=== PATIENT | female | born 1985 | race Caucasian/White ===

== ENCOUNTER 2019-08-12 15:11 | Emergency (ER) | payer MEDICARE, MEDICAID ==
[~2019-08-12] VITALS: Ht 170.2 cm; Wt 65.0 kg
[2019-08-12] MEDS ORDERED: MORPHINE SULFATE 4 MG/ML, 1ML ONE (15:56)
[2019-08-12] MEDS ORDERED: ONDANSETRON 2MG/ML, 2ML ONE (15:56)
[2019-08-12] MEDS ORDERED: ONDANSETRON 2MG/ML, 2ML IVPush ONE (16:00)
[2019-08-12] MEDS ORDERED: MORPHINE SULFATE 4 MG/ML, 1ML IVPush PRN (16:00)
[2019-08-12 16:01] LABS: BASOPHILS # (AUTO) 0.02 x10^3/uL (0-0.1); BASOPHILS % (AUTO) 0 % (0-1); EOSINOPHILS # (AUTO) 0.03 x10^3/uL (0-0.4); EOSINOPHILS % (AUTO) 0 % (1-7); LYMPHOCYTES # (AUTO) 1.58 x10^3/uL (1-3.4); LYMPHOCYTES % (AUTO) 16 % (22-44); MD NO; MEAN CORPUSCULAR HEMOGLOBIN 31.6 pg (27.0-34.8); MEAN CORPUSCULAR VOLUME 95.6 fL (80-100); MEAN PLATELET VOLUME 7.8 fL (7.4-10.4); MONOCYTES # (AUTO) 0.44 x10^3/uL (0.2-0.8); MONOCYTES % (AUTO) 5 % (2-9); NEUTROPHILS # (AUTO) 7.56 x10^3/uL (1.8-6.8); NEUTROPHILS % (AUTO) 79 % (42-75); PLATELET COUNT 229 x10^3/uL (130-400); RED BLOOD COUNT 4.66 x10^6/uL (3.82-5.3); RED CELL DISTRIBUTION WIDTH 13.1 % (9.6-15.2)
[2019-08-12 16:13] LABS: ALANINE AMINOTRANSFERASE 197 U/L (12-78); ANION GAP 5 mmol/L (5-15); CALCIUM 9.1 mg/dL (8.5-10.1); CHLORIDE 110 mmol/L (98-107); CREATININE 0.85 mg/dL (0.55-1.02)
[2019-08-12 16:15] LABS: ALKALINE PHOSPHATASE 82 U/L (45-117); BILIRUBIN,TOTAL 0.6 mg/dL (0.2-1.0); TOTAL PROTEIN 7.8 g/dL (6.4-8.2)
--- NOTE | 2019-08-12 16:59 | NUR ---
ATTEMPT TO TRANSVAG US UNSUCCESSFUL. ERMD IN TO ASSESS PT AND DISCUSS POC. POSITIONING FOR MINI CATH UNSUCCESSFUL. WILL ATTEMPT MEDICATION TO ASSIST. PT HOB TO LEVEL OF COMFORT. SISTER AT BEDSIDE, HELPFUL WITH HX AND QUESTIONS.
[2019-08-12] MEDS ORDERED: LORazepam 2 MG/ML, 1ML IVPush ONE (17:00)
[2019-08-12] MEDS ORDERED: LORazepam 2 MG/ML, 1ML ONE (17:13)
--- NOTE | 2019-08-12 17:20 | NUR ---
PREMEDICATED FOR MINI CATH ATTEMPT. PT SITTING UP IN BED. VSS. NAD NOTED AT THIS TIME. HOB TO LEVEL OF COMFORT. SISTER REMAINS AT BEDSIDE. SIDE RAILS UP, CALL LIGHT IN REACH.
--- NOTE | 2019-08-12 17:30 | NUR ---
MINI CATH SUCCESSFUL. WALKED TO LAB. REPORT TO HIPOILTO CASTANEDA.
--- NOTE | 2019-08-12 17:40 | NUR ---
SMALL BM CLEANED FROM PT BRIEFS.
[2019-08-12] MEDS ORDERED: OMNIPAQUE 350 MG/ML, 100ML BOTTLE ONE (18:04)
[2019-08-12 18:14] LABS: MICROSCOPIC NOT IND
[2019-08-12 18:16] LABS: CULTURE INDICATED? NO
[2019-08-12] MEDS ORDERED: SODIUM CHLORIDE 0.9% 1,000ML IVBOLUS ONE (18:30)
[2019-08-12] MEDS ORDERED: SODIUM CHLORIDE FLUSH 10ML SYR IVF ONE (18:30)
[2019-08-12] MEDS ORDERED: PINK LADY ENEMA 490 ML BOTTLE PR ONE (18:30)
[2019-08-12] MEDS ORDERED: MAGNESIUM CITRATE 300ML ORAL SOL ONE (18:40)
--- NOTE | 2019-08-12 18:48 | NUR ---
JENNIFER ENEMA REQUEST FROM [facility].
[2019-08-12] MEDS ORDERED: MAGNESIUM CITRATE 300ML ORAL SOL PO ONE (19:00)
--- NOTE | 2019-08-12 19:39 | NUR ---
FLEET ENEMA INSTILLED TO PT. PT LAYING ON SIDE. INSTRUCTED TO HOLD MUCH POSSIBLE FOR SEVERAL MINUTES. SISTER REMAINS AT BEDSIDE. NAD NOTED AT THIS TIME.
--- NOTE | 2019-08-12 20:19 | NUR ---
NO STOOL WITH BED KIDD. PT TRANSFERRED TO BEDSIDE COMMODE. SISTER REMAINS AT BEDSIDE. NAD NOTED AT THIS TIME.
[2019-08-12 20:21] VITALS: BP 109/70
--- NOTE | 2019-08-12 20:44 | NUR ---
PT BACK IN BED, PLAN FOR DISIMPATION AND P[employer] ENEMA. REQUEST SLIP SENT.
--- NOTE | 2019-08-12 21:02 | NUR ---
REPORT TO HIPOLITO MORA. PINK LADY PICKED UP FROM PHARMACY.
--- NOTE | 2019-08-12 21:31 | NUR ---
CARE ASSUMED. PINK LADY ADMINISTERED AND PT ASSISTED TO BSC.
--- NOTE | 2019-08-12 22:17 | NUR ---
PT HAD ONE MODERATE BM. PT ASSISTED TO WC BY STAFF AND FAMILY AND DC'D HOME WITH FAMILY MEMBER.
== END 2019-08-12 22:21 | disposition home or self-care (01) ==
LOC: ED 18:23
DX: K59.00 Constipation, unspecified (principal); R10.32 Left lower quadrant pain; J18.9 Pneumonia, unspecified organism
CPT/HCPCS: 36415; 74177; 76830; 80053; 81003; 84703; 85025; 96374; 96375; 99284; J2060; J2270; J2405; J7030; Q9967